=== PATIENT | male | born 1945 | race Caucasian/White ===

== ENCOUNTER 2020-01-12 10:38 | Emergency (ER) | payer OTHER ==
[~2020-01-12] VITALS: Ht 167.6 cm; Wt 64.9 kg
[2020-01-12 12:16] LABS: BASOPHILS ABSOLUTE AUTO 0.03 K/mm3 (0.00-0.23); BASOPHILS PERCENT AUTO 0 % (0-2); EOSINOPHILS ABSOLUTE AUTO 0.92 K/mm3 (0.00-0.68); EOSINOPHILS PERCENT AUTO 10 % (0-6); Hematocrit 39.1 % (37.0-53.0); Hemoglobin 12.6 g/dL (13.5-17.5); IMMATURE GRAN ABSOLUTE AUTO 0.03 K/mm3 (0.00-0.10); IMMATURE GRAN PERCENT AUTO 0 % (0-1); LYMPHOCYTES ABSOLUTE AUTO 1.54 K/mm3 (0.84-5.20); LYMPHOCYTES PERCENT AUTO 16 % (21-46); MONOCYTES ABSOLUTE AUTO 0.83 K/mm3 (0.16-1.47); MONOCYTES PERCENT AUTO 9 % (4-13); Mean Corpuscular HGB 30.1 pg (26.0-34.0); Mean Corpuscular HGB Conc 32.2 g/dL (31.5-36.5); Mean Corpuscular Volume 93 fL (80-100); Mean Platelet Volume 8.6 fL (9.1-12.4); NEUTROPHILS ABSOLUTE AUTO 6.19 K/mm3 (1.96-9.15); NEUTROPHILS PERCENT AUTO 65 % (41-73); Platelet Count 164 K/mm3 (150-400); RDW Coefficient Variation 13.8 % (11.7-14.2); RDW Standard Deviation 46.5 fL (35.1-46.3); Red Blood Cell Count 4.19 M/mm3 (4.30-5.90); White Blood Cell Count 9.54 K/mm3 (4.00-11.30)
[2020-01-12 12:34] LABS: Albumin, Blood 3.3 g/dL (3.4-5.0); Bilirubin, Total 0.3 mg/dL (0.1-1.0); Bun/Creatinine Ratio 19.9 (12.0-20.0); Calcium, Blood 9.2 mg/dL (8.5-10.1); Creatinine, Blood 1.61 mg/dL (0.60-1.20); Globulin, Blood 3.2 g/dL (2.2-4.0); Potassium, Blood 4.3 mmol/L (3.5-5.5); Total Protein, Blood 6.5 g/dL (6.4-8.2); Troponin I 0.02 ng/mL (0.000-0.040)
[2020-01-12] MEDS ORDERED: Norco 5-325 Ta1 EACH PO (15:30)
== END 2020-01-12 15:42 | disposition home or self-care (01) ==
LOC: ER 10:38
PROVIDERS: Physician Assistant
DX: S92.335A Nondisplaced fracture of third metatarsal bone, left foot, initial encounter for closed fracture (principal); J44.9 Chronic obstructive pulmonary disease, unspecified; F20.0 Paranoid schizophrenia; W19.XXXA Unspecified fall, initial encounter; Z91.81 History of falling; I50.9 Heart failure, unspecified; F17.210 Nicotine dependence, cigarettes, uncomplicated
CPT/HCPCS: 36415; 71046; 73610; 73630; 80053; 84484; 85025; 93005; 93010; 99284-25

== ENCOUNTER → 2020-04-07 | Outpatient (CLI) | payer OTHER ==
[~2020-04-07] MED LIST: Norco 5-325 Ta1 EACH PO
[2020-04-10 16:08] LABS: M003-IGE ASPERGILLUS FUMIGATUS <0.10 kU/L (Class 0)
== END | disposition home or self-care (01) ==
LOC: LAB 15:18 → LAB SHORT 15:18
PROVIDERS: Internal Medicine Critical Care Medicine
DX: J43.9 Emphysema, unspecified (principal); D72.1 Eosinophilia
CPT/HCPCS: 87305

== ENCOUNTER 2020-10-12 09:23 | Observation (INO) | payer OTHER ==
[~2020-10-12] VITALS: Ht 167.6 cm; Wt 64.4 kg
[~2020-10-12 09:23] MED LIST changes: +ABILIFY MYCITE30 MG PO; +ALBU2.5V5 INH; +AMLO5 PO; +ARTHRITIS PAIN100 GM; +ASMANEX HFA13 G6 INH; +ATORVASTATIN CA10 M1 PO; +Aspirin EC81 MG PO; +CHANTIX1 MG PO; +DOCU100 PO; +DOCUZEN 8.6-501 EACH PO; +FAMO40 PO; +FURO20 PO; +IPRATROPIUM BRO30 ML; +METOPROLOL SUCC25 MG; +MIRALAX17 GM PO; +Mucus Relief400 MG PO; +NARCAN4 M1; +NITROGLYCERIN0.4 M2 SL; +PANT40 PO; +PRAZ5 PO; +SYMBICORT 160-4.6 GM INH; +TAMS.4ER PO; +TIOT18 INH; +TRAZ100 PO; +VENLAFAXINE HC225 MG PO; +ZYRTEC10 M2 PO
--- NOTE | 2020-10-12 12:04 | NUR ---
10/12/20 1205 Jeni Reno V 12 ML 0.1MG/ML EPI INJECTED INTO GASTRIC DIVERTICULA.
--- NOTE | 2020-10-12 12:51 | NUR ---
10/12/20 1251 Jeni Reno V 1 FAILED IV IN R FOREARM, 1 FAILED IV IN R AC, 1 FAILED IV IN L AC, IV PLACED IN R AC, PT TOW.
--- NOTE | 2020-10-12 13:00 | NUR ---
10/12/20 1300 Jeni Reno V LATE ENTRY, 1210. UPPON ARRIVING TO SDU, PT REPORTED ABDOMINAL DISCOMFORT BUT DENIED NAUSEA. VSS. DR. LEMUS SPOKE WITH PT AND PT'S , PONCEDR. THEN PROCEEDED TO ORDER CT WITH IV CONTRAST. PT WAS CHANGED INTO A NEW GOWN AND GIVEN FRESH, WARM BLANKETS FOR COMFORT PRIOR TO TRANSPORT TO IMAGING. WHILE CHANGING GOWNS, PT REPORTED NAUSEA FOR WHICH V.O. TO GIVE 4MG IV ZOFRAN WERE OBTAINED FROM DR. LEMUS. ZOFRAN GIVEN ORDERED, PT STATED THAT THE NAUSEA DID NOT IMPROVE AFTER MEDICATION WAS GIVEN. PT WAS ESCORTED TO IMAGING VIA WC.
[2020-10-12 15:53] LABS: BASOPHILS ABSOLUTE AUTO 0.04 K/mm3 (0.00-0.23); BASOPHILS PERCENT AUTO 0 % (0-2); EOSINOPHILS ABSOLUTE AUTO 0.13 K/mm3 (0.00-0.68); EOSINOPHILS PERCENT AUTO 1 % (0-6); Hematocrit 35.9 % (37.0-53.0); Hemoglobin 11.8 g/dL (13.5-17.5); IMMATURE GRAN ABSOLUTE AUTO 0.06 K/mm3 (0.00-0.10); IMMATURE GRAN PERCENT AUTO 1 % (0-1); LYMPHOCYTES ABSOLUTE AUTO 0.57 K/mm3 (0.84-5.20); LYMPHOCYTES PERCENT AUTO 5 % (21-46); MONOCYTES ABSOLUTE AUTO 0.56 K/mm3 (0.16-1.47); MONOCYTES PERCENT AUTO 5 % (4-13); Mean Corpuscular HGB 29.8 pg (26.0-34.0); Mean Corpuscular HGB Conc 32.9 g/dL (31.5-36.5); Mean Corpuscular Volume 91 fL (80-100); Mean Platelet Volume 8.6 fL (9.1-12.4); NEUTROPHILS ABSOLUTE AUTO 9.47 K/mm3 (1.96-9.15); NEUTROPHILS PERCENT AUTO 87 % (41-73); Platelet Count 166 K/mm3 (150-400); RDW Coefficient Variation 12.6 % (11.7-14.2); RDW Standard Deviation 41.9 fL (35.1-46.3); Red Blood Cell Count 3.96 M/mm3 (4.30-5.90); White Blood Cell Count 10.83 K/mm3 (4.00-11.30)
[2020-10-12 16:44] LABS: Albumin, Blood 3.8 g/dL (3.4-5.0); Albumin/Globulin Ratio 1.2 (0.8-1.8); Bilirubin, Total 0.4 mg/dL (0.1-1.0); Bun/Creatinine Ratio 13.4 (12.0-20.0); Calcium, Blood 9.1 mg/dL (8.5-10.1); Creatinine, Blood 1.94 mg/dL (0.60-1.20); Globulin, Blood 3.1 g/dL (2.2-4.0); Potassium, Blood 3.2 mmol/L (3.5-5.5); Total Protein, Blood 6.9 g/dL (6.4-8.2)
--- NOTE | 2020-10-12 17:31 | NUR ---
ADMISSION: REPORT RECEIVED FROM DAY SURGERY RN. PT TO UNIT AT ABOUT 1420. UPON ASSESSMENT PT IS IN NO VISABLE DISTRESS. A/O, VSS. ABLE TO AMBULATE FROM WHEELCHAIR TO BED. PT DENIES NAUSEA, REPORTS "DISCOMFORT" IN ABD BUT NO PAIN. SPOKE WITH DR. DELONG WHO WOULD LIKE Q1 HOURS VITALS FOR [address] LEMUS ALSO SAW PT. WILL CTM
--- NOTE | 2020-10-12 17:36 | NUR ---
SUMMARY: NO ACUTE CHANGE SINCE PT ADMITTED. VSS, A/O. PT HAS DENIED NEED FOR NAUSEA OR PAIN MED. ANTIBIOTICS AND NS INFUSING. PT AMBULATED SEVERAL TIMES TO BATHROOM TO VOID. NO ACUTE SAFETY CONCERNS CURRENTLY, WILL CTM AND REPORT TO MADELAINE ZAVALA.
[2020-10-13 04:51] LABS: BASOPHILS ABSOLUTE AUTO 0.03 K/mm3 (0.00-0.23); BASOPHILS PERCENT AUTO 0 % (0-2); EOSINOPHILS ABSOLUTE AUTO 0.31 K/mm3 (0.00-0.68); EOSINOPHILS PERCENT AUTO 4 % (0-6); Hematocrit 33.7 % (37.0-53.0); Hemoglobin 10.8 g/dL (13.5-17.5); IMMATURE GRAN ABSOLUTE AUTO 0.02 K/mm3 (0.00-0.10); IMMATURE GRAN PERCENT AUTO 0 % (0-1); LYMPHOCYTES ABSOLUTE AUTO 1.18 K/mm3 (0.84-5.20); LYMPHOCYTES PERCENT AUTO 14 % (21-46); MONOCYTES ABSOLUTE AUTO 0.65 K/mm3 (0.16-1.47); MONOCYTES PERCENT AUTO 8 % (4-13); Mean Corpuscular HGB 29.4 pg (26.0-34.0); Mean Corpuscular Volume 92 fL (80-100); Mean Platelet Volume 8.9 fL (9.1-12.4); NEUTROPHILS ABSOLUTE AUTO 6.22 K/mm3 (1.96-9.15); NEUTROPHILS PERCENT AUTO 74 % (41-73); Platelet Count 171 K/mm3 (150-400); RDW Coefficient Variation 12.8 % (11.7-14.2); RDW Standard Deviation 43.2 fL (35.1-46.3); Red Blood Cell Count 3.67 M/mm3 (4.30-5.90); White Blood Cell Count 8.41 K/mm3 (4.00-11.30)
--- NOTE | 2020-10-13 05:04 | NUR ---
PT VSS T/O NIGHT. 3LO2 NC IN [place] PER BASELINE, CPAP ON WHEN SLEEPING. ABD SOFT, MILDLY DISTENDED, BT HYPO, PT DENIES PASSING FLATUS. PT DENIED PAIN/N/V T/O NIGHT. PT VOIDING CLEAR YELLOW URINE W/O DIFFICULTY. PT AMB W/SBA, ADELINA WELL. PT REMAINS NPO, IVF AND ABX CONT PER ORDERS.
[2020-10-13 05:19] LABS: Albumin, Blood 3.4 g/dL (3.4-5.0); Albumin/Globulin Ratio 1.1 (0.8-1.8); Bilirubin, Total 0.6 mg/dL (0.1-1.0); Bun/Creatinine Ratio 15.7 (12.0-20.0); Calcium, Blood 9.1 mg/dL (8.5-10.1); Creatinine, Blood 1.59 mg/dL (0.60-1.20); Magnesium, Blood 2.2 mg/dL (1.6-2.4); Potassium, Blood 3.4 mmol/L (3.5-5.5); Total Protein, Blood 6.4 g/dL (6.4-8.2)
--- NOTE | 2020-10-13 16:43 | NUR ---
ABLE TO ADVANCE PT TO CLEAR LIQUID PER ORDER, PT BROUGHT ORANGE JUICE AND BEEF BROOTH. WILL CTM
--- NOTE | 2020-10-13 16:44 | NUR ---
SUMMARY: NO ACUTE CHANGE TODAY. VSS, A/O. HELD ORAL MEDICATIONS THIS AM, PT NPO AT THE TIME. PT UNDERWENT UPPER GI AND HAD REPEAT ABD CT, TOLERATED WELL. PT CURRENTLY HAVING LIQUID BM'S. INDEPENDENT IN ROOM, HAS WALKED IN HALLS SERVERAL TIMES. HAS DENIED ANY PAIN OR NAUSEA TODAY. PLAN IS TO CONTINUE LIQUID DIET TONIGHT AND ADVANCE TO FULL LIQUID FOR BREAKFAST PER DR. GARCIA. NO SAFETY CONCERNS AT THIS TIME, WILL REPORT TO MADELAINE ZAVALA.
--- NOTE | 2020-10-14 05:53 | NUR ---
PT VSS T/O NIGHT. ABD SOFT, MILDLY DISTENDED, PT STATES AT BASELINE. PT DENIED PAIN/N/V. PT ADELINA CL PO, HAD 3 LIQ BM THIS SHIFT. PLAN TO ADVANCE TO [place] THIS AM. IVF AND ABX CONT PER ORDERS. PT INDEP IN ROOM, SBA W/FWW IN HALLS, ADELINA WELL.
[2020-10-14 10:05] LABS: BASOPHILS ABSOLUTE AUTO 0.03 K/mm3 (0.00-0.23); BASOPHILS PERCENT AUTO 1 % (0-2); EOSINOPHILS ABSOLUTE AUTO 0.49 K/mm3 (0.00-0.68); EOSINOPHILS PERCENT AUTO 9 % (0-6); Hematocrit 30.4 % (37.0-53.0); Hemoglobin 9.9 g/dL (13.5-17.5); IMMATURE GRAN ABSOLUTE AUTO 0.02 K/mm3 (0.00-0.10); IMMATURE GRAN PERCENT AUTO 0 % (0-1); LYMPHOCYTES ABSOLUTE AUTO 0.99 K/mm3 (0.84-5.20); LYMPHOCYTES PERCENT AUTO 17 % (21-46); MONOCYTES ABSOLUTE AUTO 0.42 K/mm3 (0.16-1.47); MONOCYTES PERCENT AUTO 7 % (4-13); Mean Corpuscular HGB Conc 32.6 g/dL (31.5-36.5); Mean Corpuscular Volume 92 fL (80-100); Mean Platelet Volume 8.6 fL (9.1-12.4); NEUTROPHILS ABSOLUTE AUTO 3.79 K/mm3 (1.96-9.15); NEUTROPHILS PERCENT AUTO 66 % (41-73); Platelet Count 135 K/mm3 (150-400); RDW Coefficient Variation 12.7 % (11.7-14.2); RDW Standard Deviation 42.5 fL (35.1-46.3); White Blood Cell Count 5.74 K/mm3 (4.00-11.30)
[2020-10-14 10:42] LABS: Albumin, Blood 2.9 g/dL (3.4-5.0); Bilirubin, Total 0.5 mg/dL (0.1-1.0); Bun/Creatinine Ratio 12.1 (12.0-20.0); Calcium, Blood 8.7 mg/dL (8.5-10.1); Creatinine, Blood 1.32 mg/dL (0.60-1.20); Potassium, Blood 3.8 mmol/L (3.5-5.5); Total Protein, Blood 5.9 g/dL (6.4-8.2)
[2020-10-14] MEDS ORDERED: FLUC200 PO (12:29)
[2020-10-14] MEDS ORDERED: ONDA4ODT MM (12:30)
[2020-10-14] MEDS ORDERED: AMOCLA875 PO (12:30)
[2020-10-14] MEDS ORDERED: AZO CRANBERRY PO (12:31)
--- NOTE | 2020-10-14 12:55 | NUR ---
DISCHARGE PT AND EDUCATED ON AND RECEIVED PRINTED DC INSTRUCTIONS AND VERB AN UNDERSTANDING. NEW RX FAXED TO [facility]. PT REPORTS CALLING TO SCHEDULE F/U APPTS. AND PT LEFT WITH ALL PERSONAL BELONGINGS AT SIDE. ESCORTED OUT VIA W/C.
== END 2020-10-14 13:00 | disposition home or self-care (01) ==
LOC: ORSCSDS 09:23 → SURS 13:48 → ORSCSDS 13:48 → SURS 14:30
PROVIDERS: ADMIT Family Medicine
DX: K31.4 Gastric diverticulum (principal); B37.81 Candidal esophagitis; K29.40 Chronic atrophic gastritis without bleeding; K57.30 Diverticulosis of large intestine without perforation or abscess without bleeding; K31.89 Other diseases of stomach and duodenum; G47.33 Obstructive sleep apnea (adult) (pediatric); I25.10 Atherosclerotic heart disease of native coronary artery without angina pectoris; F43.10 Post-traumatic stress disorder, unspecified; I13.0 Hypertensive heart and chronic kidney disease with heart failure and stage 1 through stage 4 chronic kidney disease, or unspecified chronic kidney disease; N18.30 Chronic kidney disease, stage 3 unspecified; I50.9 Heart failure, unspecified; F17.210 Nicotine dependence, cigarettes, uncomplicated; D63.1 Anemia in chronic kidney disease; F25.9 Schizoaffective disorder, unspecified; J43.9 Emphysema, unspecified; K91.72 Accidental puncture and laceration of a digestive system organ or structure during other procedure; Z90.49 Acquired absence of other specified parts of digestive tract; Z20.828 Contact with and (suspected) exposure to other viral communicable diseases; Z86.73 Personal history of transient ischemic attack (TIA), and cerebral infarction without residual deficits; Z95.5 Presence of coronary angioplasty implant and graft; Z88.1 Allergy status to other antibiotic agents; Z88.8 Allergy status to other drugs, medicaments and biological substances; Z91.038 Other insect allergy status; Z79.51 Long term (current) use of inhaled steroids; Z79.82 Long term (current) use of aspirin; Z79.899 Other long term (current) drug therapy; Z23 Encounter for immunization; Z86.010 Personal history of colon polyps
CPT/HCPCS: 36415; 74176; 74240; 80053; 83605; 83735; 84145; 85025; 88305; 94640; 94762; C9113; J1450; J2405; J2543; J2704; J7030; J7120

== ENCOUNTER 2022-06-02 11:33 | Emergency (ER) | payer OTHER ==
[~2022-06-02] VITALS: Ht 167.6 cm; Wt 59.0 kg
[~2022-06-02 11:33] MED LIST changes: +AMOCLA875 PO; +AZO CRANBERRY PO; +FLUC200 PO; -METOPROLOL SUCC25 MG; +METOPROLOL SUCC25 MG PO; +ONDA4ODT MM
== END 2022-06-02 13:25 | disposition home or self-care (01) ==
LOC: ER 11:33
DX: U07.1 COVID-19 (principal); J44.9 Chronic obstructive pulmonary disease, unspecified; I50.9 Heart failure, unspecified; F17.210 Nicotine dependence, cigarettes, uncomplicated; Z79.899 Other long term (current) drug therapy; Z79.82 Long term (current) use of aspirin; Z88.8 Allergy status to other drugs, medicaments and biological substances; Z88.1 Allergy status to other antibiotic agents; Z91.038 Other insect allergy status
CPT/HCPCS: 99282